=== PATIENT | female | born 1975 | race Caucasian/White ===

== ENCOUNTER 2016-03-25 16:31 | Emergency (ER) | payer BC ==
[~2016-03-25 16:31] MED LIST: ALPR0.25 PO; ALPR1TAB2 PO; CYCL10TA45 PO; DEPO PROVERA; ESTROGEN; LAMO100T65 PO; LAMO100T69 PO; LAMO2TB. PO; NAPR-243 PO; PARO10TA21 PO; PAROXETINE PO; TRAM50TA2 PO; TRM50T PO
== END 2016-03-25 16:35 | disposition left against medical advice (07) ==
LOC: EDUNIT# 16:31 → ER 16:33
DX: R51 Headache (principal); Z53.21 Procedure and treatment not carried out due to patient leaving prior to being seen by health care provider

== ENCOUNTER → 2016-11-26 | Emergency (ER) | payer BC ==
[~2016-11-26] VITALS: Ht 162.6 cm; Wt 81.6 kg
[~2016-11-26] MED LIST changes: +CYCL10TA9 PO; +KETOROLAC 30 MG/ML VIAL IVP ONE; +NS IV 1000 ML 1,000 ML IV ONE; +ONDANSETRON 4 MG/2 ML (SDV) Z0FRAN IVP ONE; +fentaNYL INJECTION 100 MCG/2 ML AMP IVP ONE
[2016-11-26 05:13] LABS: BASOPHILS # (AUTO) 0.1 10^3/uL (0.0-0.1); BASOPHILS % (AUTO) 1 % (0-10); EOSINOPHILS # (AUTO) 0.1 10^3/uL (0.0-0.3); EOSINOPHILS % (AUTO) 2 % (0-10); LYMPHOCYTES # (AUTO) 2.4 X 10^3 (1.0-4.0); LYMPHOCYTES % (AUTO) 32 % (12-44); MEAN CORPUSCULAR HEMOGLOBIN 32 PG (25-34); MEAN CORPUSCULAR HGB CONC 35 G/DL (32-36); MEAN CORPUSCULAR VOLUME 91 FL (80-99); MEAN PLATELET VOLUME 10.7 FL (7.4-10.4); MONOCYTES # (AUTO) 0.8 X 10^3 (0.0-1.0); MONOCYTES % (AUTO) 11 % (0-12); NEUTROPHILS # (AUTO) 4.1 X 10^3 (1.8-7.8); NEUTROPHILS % (AUTO) 55 % (42-75); PLATELET COUNT 326 10^3/uL (130-400); RED CELL DISTRIBUTION WIDTH 13.1 % (10.0-14.5); WHITE BLOOD COUNT 7.5 10^3/uL (4.3-11.0)
[2016-11-26 05:13] LABS: BILIRUBIN,URINE NEGATIVE (NEGATIVE); KETONES,URINE NEGATIVE (NEGATIVE); LEUKOCYTE ESTERASE ,URINE 2+ (NEGATIVE); NITRITE,URINE NEGATIVE (NEGATIVE); PH,URINE 5 (5-9); PROTEIN,URINE 2+ (NEGATIVE); UROBILINOGEN,URINE NORMAL (NORMAL)
--- NOTE | 2016-11-26 05:27 | ED Abdominal Pain ---
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 Sepsis Screen: No Definite Risk Source of Information: Patient Exam Limitations: No Limitations (KIRK DELANEY MD) History of Present Illness Time Seen By Provider: 04:51 Initial Comments This 41-year-old woman presents to the emergency room in distress with complaints of right flank and lower back pain that abruptly woke her from sleep as 02:00. She has associated nausea without vomiting. She has a history of renal stones and states this pain is comparable to prior experiences with renal stones. She had a large 1 cm left obstructing ureteral stone in 2014 for which she received treatment at the [facility] in [place]. She was also noted to have a 0.5 cm stone still within the right kidney on a CT performed at the same time. She states this stone was not addressed. Her primary care provider is Dr. Franks. Her urologist is Dr. Garzon. (KIRK DELANEY MD) Allergies and Home Medications Allergies Coded Allergies: azithromycin (Unverified Allergy, Unknown, 09/29/14) Uncoded Allergies: Z-PACK (Allergy, Severe, RASH, 01/26/15) ESTROGEN (Allergy, Mild, VOMITING, 01/26/15) Home Medications Alprazolam 1 Mg Tablet, 1 MG PO BID, (Reported) Alprazolam 0.25 Mg Tablet, 0.25 MG PO, (Reported) Cyclobenzaprine HCl 10 Mg Tablet, 10 MG PO Q8H PRN for SPASMS, #15 Ref 0 Prescribed by: DANIELLE HIGGINS on 11/26/16 0635 Cyclobenzaprine Hcl 10 Mg Tablet, 10 MG PO BID, #20 Prescribed by: MANNY SEVILLA on 06/30/14 1108 Lamotrigine 100 Mg Tablet, 100 MG PO DAILY, (Reported) Lamotrigine 2 Mg Tb.chw.dsp, 2 MG PO, (Reported) Naproxen 500 Mg Tablet, 1 EACH PO BID PRN for PAIN, #20 FOR PAIN Prescribed by: MANNY SEVILLA on 06/30/14 1110 Tramadol Hcl 50 Mg Tablet, 50 MG PO Q4H PRN for PAIN, (Reported) Tramadol Hcl 50 Mg Tablet, 50 MG PO QID, #60 Prescribed by: MANNY SEVILLA on 06/30/14 1108 [Depo Provera] , (Reported) [Paroxetine] , 40 MG PO DAILY, (Reported) Review of Systems Constitutional: diaphoresis EENTM: No Symptoms Reported Respiratory: No Symptoms Reported Cardiovascular: No Symptoms Reported Gastrointestinal: See HPI Genitourinary: See HPI Musculoskeletal: no symptoms reported Skin: no symptoms reported Psychiatric/Neurological: No Symptoms Reported Endocrine: No Symptoms Reported Hematologic/Lymphatic: No Symptoms Reported (KIRK DELANEY MD) Past Kjbllrk-Plsajo-Dswlno Hx Patient Social History Alcohol Use: Denies Use Recreational Drug Use: No Recent Foreign Travel: No Contact w/Someone Who Travel: No Recent Infectious Disease Expo: No Physical Abuse: No Sexual Abuse: No (KIRK DELANEY MD) Immunizations Up To Date Tetanus Booster (TDap): Unknown (KIRK DELANEY MD) Surgeries History of Surgeries: Yes (d&c, kidney stone basket retrieval and a lithotripsy ) (KIRK DELANEY MD) Respiratory History of Respiratory Disorde: No (KIRK DELANEY MD) Cardiovascular History of Cardiac Disorders: No (KIRK DELANEY MD) Neurological History of Neurological Disord: No (KIRK DELANEY MD) Reproductive System : No Last Menstrual Period: Nov 26, 2016 Hx Reproductive Disorders: No (KIRK DELANEY MD) Genitourinary History of Genitourinary Disor: Yes Genitourinary Disorders: Kidney Stones (KIRK DELANEY MD) Gastrointestinal History of Gastrointestinal Di: No (KIRK DELANEY MD) Musculoskeletal History of Musculoskeletal Dis: Yes (ankle malformation at ) (KIRK DELANEY MD) Endocrine History of Endocrine Disorders: No (KIRK DELANEY MD) HEENT History of HEENT Disorders: No (KIRK DELANEY MD) Cancer History of Cancer: No (KIRK DELANEY MD) Psychosocial History of Psychiatric Problem: Yes Behavioral Health Disorders: ADD/ADHD, Anxiety, Bipolar, Depression Suicide Risk Score: 0 (KIRK DELANEY MD) Integumentary History of Skin or Integumenta: No (KIRK DELANEY MD) Blood Transfusions History of Blood Disorders: No (KIRK DELANEY MD) Family Medical History Significant Family History: Heart Disease, Diabetes, Hypertension (KIRK DELANEY MD) Physical Exam Vital Signs VS - Last 72 Hours, by Label 11/26/16 04:55 Temp 97.4 Pulse 87 Resp 24 B/P (MAP) 186/122 Pulse Ox 88 (MANJULA,DANIELLE J) Vital Signs Capillary Refill : Less Than 3 Seconds (KIRK DELANEY MD) General Appearance: WD/WN, moderate distress HEENT: PERRL/EOMI, normal ENT inspection Neck: normal inspection Respiratory: lungs clear, normal breath sounds, no respiratory distress, no accessory muscle use Cardiovascular: regular rate, rhythm, no edema, no murmur Gastrointestinal: normal bowel sounds, non tender, soft Extremities: normal inspection, no pedal edema Back: normal inspection, no vertebral tenderness, CVA tenderness (R) 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, no motor/sensory deficits, alert, oriented x 3, other (anxious) Skin: normal color, warm/dry (KIRK DELANEY MD) Progress/Results/Core Measures Results/Orders Lab Results Laboratory Tests Test 11/26/16 04:52 11/26/16 05:00 Range/Units Urine Color BROWN H Urine Clarity VERY CLOUDY H Urine pH 5 5-9 Urine Specific [place] 1.025 H 1.016-1.022 Urine Protein 2+ H NEGATIVE Urine Glucose (UA) NEGATIVE NEGATIVE Urine Ketones NEGATIVE NEGATIVE Urine Nitrite NEGATIVE NEGATIVE Urine Bilirubin NEGATIVE NEGATIVE Urine Urobilinogen NORMAL NORMAL MG/DL Urine Leukocyte Esterase 2+ H NEGATIVE Urine RBC (Auto) 5+ H NEGATIVE Urine RBC >100 H /HPF Urine WBC RARE /HPF Urine Squamous Epithelial Cells 2-5 /HPF Urine Crystals NONE /LPF Urine Bacteria FEW H /HPF Urine Casts NONE /LPF Urine Mucus NEGATIVE /LPF Urine Culture Indicated YES White Blood Count 7.5 4.3-11.0 10^3/uL Red Blood Count 4.80 4.35-5.85 10^6/uL Hemoglobin 15.1 11.5-16.0 G/DL Hematocrit 44 35-52 % Mean Corpuscular Volume 91 80-99 FL Mean Corpuscular Hemoglobin 32 25-34 PG Mean Corpuscular Hemoglobin Concent 35 32-36 G/DL Red Cell Distribution Width 13.1 10.0-14.5 % Platelet Count 326 130-400 10^3/uL Mean Platelet Volume 10.7 H 7.4-10.4 FL Neutrophils (%) (Auto) 55 42-75 % Lymphocytes (%) (Auto) 32 12-44 % Monocytes (%) (Auto) 11 0-12 % Eosinophils (%) (Auto) 2 0-10 % Basophils (%) (Auto) 1 0-10 % Neutrophils # (Auto) 4.1 1.8-7.8 X 10^3 Lymphocytes # (Auto) 2.4 1.0-4.0 X 10^3 Monocytes # (Auto) 0.8 0.0-1.0 X 10^3 Eosinophils # (Auto) 0.1 0.0-0.3 10^3/uL Basophils # (Auto) 0.1 0.0-0.1 10^3/uL Sodium Level 139 135-145 MMOL/L Potassium Level 4.0 3.6-5.0 MMOL/L Chloride Level 106 98-107 MMOL/L Carbon Dioxide Level 20 L 21-32 MMOL/L Anion Gap 13 5-14 MMOL/L Blood Urea Nitrogen 17 7-18 MG/DL Creatinine 0.84 0.60-1.30 MG/DL Estimat Glomerular Filtration Rate > 60 BUN/Creatinine Ratio 20 Glucose Level 109 H 70-105 MG/DL Calcium Level 9.6 8.5-10.1 MG/DL Total Bilirubin 0.4 0.1-1.0 MG/DL Aspartate Amino Transf (AST/SGOT) 16 5-34 U/L Alanine Aminotransferase (ALT/SGPT) 17 0-55 U/L Alkaline Phosphatase 89 40-136 U/L Total Protein 7.0 6.4-8.2 GM/DL Albumin 4.5 3.2-4.5 GM/DL Serum Test, Qualitative NEGATIVE NEGATIVE (DANIELLE HIGGINS) My Orders Orders - DANIELLE HIGGINS Fentanyl Injection (Sublimaze Injection (11/26/16 06:15) (DANIELLE HIGGINS) Medications Given in ED Current Medications Medications Dose Ordered Sig/Ronnie Route Start Time Stop Time Status Last Admin Dose Admin Fentanyl Citrate 50 mcg ONCE ONCE IVP 11/26/16 06:15 11/26/16 06:16 DC 11/26/16 06:08 50 MCG Ketorolac Tromethamine 30 mg ONCE ONCE IVP 11/26/16 05:00 11/26/16 05:01 DC 11/26/16 05:04 30 MG Ondansetron HCl 4 mg ONCE ONCE IVP 11/26/16 05:00 11/26/16 05:01 DC 11/26/16 05:04 4 MG Ondansetron HCl 4 mg ONCE ONCE IVP 11/26/16 05:30 11/26/16 05:31 DC 11/26/16 05:36 4 MG Sodium Chloride 1,000 ml @ 0 mls/hr Q0M ONCE IV 11/26/16 05:21 11/26/16 05:23 DC 11/26/16 05:36 999 MLS/HR (DANIELLE HIGGINS) Vital Signs/I&O Vital Sign - Last 12Hours 11/26/16 04:55 Temp 97.4 Pulse 87 Resp 24 B/P (MAP) 186/122 Pulse Ox 88 (DANIELLE HIGGINS J) Blood Pressure Mean: 143 Progress Note : Time: 05:34 Progress Note Patient was interviewed, seen, and examined along with ADELA Dominique. I agree with MS4 history, exam, and assessment with the following additions. Patient is in somewhat distress from this pain. She feels it is similar to prior kidney stones. She is very anxious. She is alert and oriented. Lungs are clear to auscultation bilaterally. Abdomen is soft with tenderness in the right flank. Bowel sounds are normal. Extremities are unremarkable. Labs and UA pending. Pain was treated with Toradol and nausea treated with Zofran. A second dose of Zofran was administered due to rebound nausea. (KIRK DELANEY MD) Progress Note : Time: 06:21 Progress Note Took over care of the patient, met with and examined the patient. Her story and clinical findings are consistent with possible stone. Her urine with blood in it could be because of her. She is completing versus passage of a kidney stone. No history of trauma. Other differential might include just lumbar back pain secondary to she was sleeping on a couch which is not her normal sleeping position. (DANIELLE HIGGINS) Diagnostic Imaging Diagonstic Imaging: CT Plain Films/CT/US/NM/MRI: abdomen, pelvis (without contrast) Comments Tiny non-shadowing calculus within the left kidney otherwise the kidneys ureter and urinary bladder unremarkable. Incidentally there is normal looking lower thorax. Liver, gallbladder, spleen, pancreas and adrenal glands are unremarkable. IUD and a abdominal follicle left ovary measuring 22 mm. Appendix normal limits. Stomach small bowel colon are unremarkable. No acute osseous fracture or abnormality. (DANIELLE HIGGINS) Transfer of Care Transfer of Care Time: 06:00 Care transferred to: Manjula (DANIELLE HIGGINS) Departure Impression Impression: Primary Impression: Back pain Qualified Codes: M54.5 - Low back pain Disposition: HOME, SELF-CARE Condition: Improved Departure-Patient Inst. Decision time for Depature: 06:32 (DANIELLE HIGGINS) Referrals: [facility] (PCP/Family) Primary Care Physician Patient Instructions: Back Exercises Add. Discharge Instructions: Go home and get some rest. Apply some heat alternating with ice to your back. You can also use creams such as icy hot or Capsaicin oil. Use the Flexeril every 8 hours as needed but realizes that Flexeril can cause you to be drowsy. Take ibuprofen 800 mg every 8 hours for Naprosyn/Aleve 2 capsules twice a day. If you have breakthrough pain you can take 1000 mg of Tylenol every 8 hours. If this is not improving or is interfering with your ability to function should follow-up with her primary care physician. Typically these pains resolve entirely within 4-6 weeks. You may experience much quicker relief however. All discharge instructions reviewed with patient and/or family. Voiced understanding. Scripts Cyclobenzaprine HCl (Cyclobenzaprine HCl) 10 Mg Tablet 10 MG PO Q8H Y for SPASMS, #15 TAB 0 Refills Prov: DANIELLE HIGGINS 11/26/16 Work/School Note: Work Release Form Date Seen in the Emergency Department: Nov 26, 2016 Return to Work: Nov 27, 2016 Restrictions: No Restrictions Copy Copies To 1: SALONI LEIVA JOSHUA T MD Nov 26, 2016 05:27 DANIELLE HIGGINS Nov 26, 2016 06:23
[2016-11-26 05:28] LABS: WBC,URINE RARE /HPF
[2016-11-26 05:40] LABS: ALANINE AMINOTRANSFERASE 17 U/L (0-55); ALBUMIN 4.5 GM/DL (3.2-4.5); ANION GAP 13 MMOL/L (5-14); ASPARTATE AMINO TRANSFERASE 16 U/L (5-34); BILIRUBIN,TOTAL 0.4 MG/DL (0.1-1.0); BLOOD UREA NITROGEN 17 MG/DL (7-18); BUN/CREATININE RATIO 20; CALCIUM 9.6 MG/DL (8.5-10.1); CARBON DIOXIDE 20 MMOL/L (21-32); CHLORIDE 106 MMOL/L (98-107); CREATININE SERUM 0.84 MG/DL (0.60-1.30); GFR ESTIMATED > 60; GLUCOSE 109 MG/DL (70-105); SODIUM 139 MMOL/L (135-145)
[2016-11-26 06:42] VITALS: BP 130/89
--- NOTE | 2016-11-26 06:44 | Diagnostic Imaging Report ---
PROCEDURE: CT urinary tract, rule out kidney stone. TECHNIQUE: Multiple contiguous axial images were obtained through the abdomen and pelvis without the use of intravenous contrast. INDICATION: Right lower back pain. History of kidney stones. COMPARISON: 09/29/2014 FINDINGS: Included views of the lung bases are clear. CT abdomen: Normal appendix is identified. Small bowel loops are nondistended. Single nonobstructive punctate renal calculus is noted within the superior pole on the left. No renal calculus seen on the right side. No uterine calculi are seen on either side. Additionally, there is no hydronephrosis or other evidence of obstruction. Note is made of asymmetric prominent appearance to the right gonadal vein. No focal renal lesions are identified on this noncontrast study. The liver, spleen, pancreas, and adrenal glands have an unremarkable noncontrast CT appearance as well. There is no loculated fluid collection, free fluid, nor free air within the abdomen. No abnormal mesenteric or retroperitoneal adenopathy is seen. Bony structures show no acute abnormalities. CT pelvis: Urinary bladder is unopacified. No calculi are seen within the urinary bladder. Indwelling intrauterine contraceptive device is identified and appears to be in appropriate position. There is a left ovarian cyst that measures 2.5 x 1.7 cm. There may be trace free fluid within the pelvis. There is no loculated fluid collection or free air. No abnormal lymph nodes are seen. Bony structures show no acute abnormalities. IMPRESSION: 1. Single nonobstructive left renal calculus. No ureteral calculi or evidence of obstruction is seen on either side. 2. Small amount of free fluid in the pelvis; possibly physiologic. 3. Left ovarian cyst. 4. Asymmetric prominence of the right gonadal vein. This is nonspecific, but in the correct clinical setting, can be seen as a sequela of pelvic congestion syndrome. Dictated by: Dictated on workstation # [id number]
== END ==
LOC: EDUNIT# 04:46 → ER 04:48
DX: M54.5 Low back pain (principal); F31.9 Bipolar disorder, unspecified; F41.9 Anxiety disorder, unspecified; F90.9 Attention-deficit hyperactivity disorder, unspecified type; Z87.442 Personal history of urinary calculi; Z82.49 Family history of ischemic heart disease and other diseases of the circulatory system
CPT/HCPCS: 36415; 74176; 80053; 81000; 84703; 85025; 87088

== ENCOUNTER → 2017-04-11 | Outpatient (CLI) | payer BC ==
[~2017-04-11] MED LIST changes: -KETOROLAC 30 MG/ML VIAL IVP ONE; -NS IV 1000 ML 1,000 ML IV ONE; -ONDANSETRON 4 MG/2 ML (SDV) Z0FRAN IVP ONE; -fentaNYL INJECTION 100 MCG/2 ML AMP IVP ONE
--- NOTE | 2017-04-11 17:48 | Diagnostic Imaging Report ---
INDICATION: Low back pain with sciatica. Lumbar spine. FINDINGS: AP and lateral views of the lumbar spine show normal vertebral body height and alignment. Disc spaces are well maintained. IMPRESSION: Unremarkable lumbar spine. Dictated by: Dictated on workstation # [id number]
--- NOTE | 2017-04-11 17:50 | Diagnostic Imaging Report ---
INDICATION: Low back pain with sciatica. FINDINGS: AP and lateral views of the sacrum and coccyx show no fracture or dislocation. There is an IUD present. IMPRESSION: Negative sacrum and coccyx Dictated by: Dictated on workstation # [id number]
== END ==
LOC: RAD 16:24
PROVIDERS: ATTEND Nurse Practitioner Family
DX: M54.40 Lumbago with sciatica, unspecified side (principal); Z97.5 Presence of (intrauterine) contraceptive device
CPT/HCPCS: 72100; 72220

== ENCOUNTER 2017-10-19 16:39 | Emergency (ER) | payer BC ==
[~2017-10-19] VITALS: Ht 162.6 cm; Wt 73.0 kg
--- NOTE | 2017-10-19 17:18 | ED Integumentary General ---
General Chief Complaint: Skin/Wound Problems Stated Complaint: SPIDER BITE Nursing Triage Note: PT CO OF AREA ON R ELBOW APPROX 1.5CM R ELBOW STATES HAS PAIN RED ROUND AND CRUSTY Source: patient Exam Limitations: no limitations History of Present Illness Date Seen by Provider: Oct 19, 2017 Time Seen by Provider: 17:00 Initial Comments Patient is a 42-year-old female who presents to the emergency room with complaints of an infection or a spider bite to her right elbow. She states that the area started as a pimple 4 days ago that she squeezed and now the area is approximately 1-1/2 cm in diameter and has a crust over it and redness around the outside. She also reports fever. Timing/Duration: week Location: extremities Possible Cause: no cause identified, insect bite Associated Symptoms: change in skin texture, fever Allergies and Home Medications Allergies Coded Allergies: azithromycin (Unverified Allergy, Unknown, 09/29/14) Uncoded Allergies: Z-PACK (Allergy, Severe, RASH, 01/26/15) ESTROGEN (Allergy, Mild, VOMITING, 01/26/15) Home Medications Alprazolam 1 Mg Tablet, 1 MG PO BID, (Reported) Lamotrigine 100 Mg Tablet, 100 MG PO DAILY, (Reported) Sulfamethoxazole/Trimethoprim 1 Each Tablet, 1 EACH PO BID Prescribed by: MARSHA CHAKRABORTY on 10/19/171758 [Paroxetine] , 40 MG PO DAILY, (Reported) Patient Home Medication List Home Medication List Reviewed: Yes Constitutional: see HPI, chills, fever Skin: see HPI, change in color, lesions (right elbow) All Other Systems Reviewed Negative Unless Noted: Yes Past Ofnexpe-Rihmoq-Fuvweh Hx Past Med/Social Hx: Reviewed Nursing Past Med/Soc Hx Patient Social History Alcohol Use: Occasionally Uses Recreational Drug Use: No Smoking Status: Never a Smoker Recent Foreign Travel: No Contact w/Someone Who Travel: No Recent Infectious Disease Expo: No Recent Hopitalizations: No Physical Abuse: No Sexual Abuse: No Immunizations Up To Date Tetanus Booster (TDap): Unknown Past Medical History Surgeries: Yes (d&c, kidney stone basket retrieval and a lithotripsy) Respiratory: No Cardiac: No Neurological: No Reproductive Disorders: No Genitourinary: Yes Kidney Stones Gastrointestinal: No Musculoskeletal: Yes (ankle malformation at ) Endocrine: No HEENT: No Cancer: No Psychosocial: Yes ADD/ADHD, Anxiety, Bipolar, Depression Nursing Suicide Risk Score: 0 Integumentary: No Blood Disorders: No Family Medical History Reviewed Nursing Family Hx Heart Disease, Diabetes, Hypertension Physical Exam Vital Signs Vital Signs - First Documented 10/19/17 16:55 Temp 97.1 Pulse 79 Resp 18 B/P (MAP) 147/100 (116) Pulse Ox 98 Capillary Refill : Less Than 3 Seconds General Appearance: WD/WN, no apparent distress Cardiovascular: regular rate, rhythm, no edema, no gallop, no JVD, no murmur Respiratory: chest non-tender, lungs clear, normal breath sounds, no respiratory distress, no accessory muscle use Skin Problem Location: upper extremities (right elbow) Skin Problem Character: abscess (abscess has drained on its own. ), erythema, tenderness, thickening, warm Progress/Results/Core Measures Results/Orders Lab Results Laboratory Tests Test 10/19/17 17:00 Range/Units White Blood Count 8.3 4.3-11.0 10^3/uL Red Blood Count 4.96 4.35-5.85 10^6/uL Hemoglobin 15.9 11.5-16.0 G/DL Hematocrit 45 35-52 % Mean Corpuscular Volume 91 80-99 FL Mean Corpuscular Hemoglobin 32 25-34 PG Mean Corpuscular Hemoglobin Concent 35 32-36 G/DL Red Cell Distribution Width 13.0 10.0-14.5 % Platelet Count 294 130-400 10^3/uL Mean Platelet Volume 10.5 H 7.4-10.4 FL Neutrophils (%) (Auto) 73 42-75 % Lymphocytes (%) (Auto) 17 12-44 % Monocytes (%) (Auto) 9 0-12 % Eosinophils (%) (Auto) 1 0-10 % Basophils (%) (Auto) 0 0-10 % Neutrophils # (Auto) 6.0 1.8-7.8 X 10^3 Lymphocytes # (Auto) 1.4 1.0-4.0 X 10^3 Monocytes # (Auto) 0.7 0.0-1.0 X 10^3 Eosinophils # (Auto) 0.1 0.0-0.3 10^3/uL Basophils # (Auto) 0.0 0.0-0.1 10^3/uL Sodium Level 139 135-145 MMOL/L Potassium Level 3.9 3.6-5.0 MMOL/L Chloride Level 104 98-107 MMOL/L Carbon Dioxide Level 25 21-32 MMOL/L Anion Gap 10 5-14 MMOL/L Blood Urea Nitrogen 7 7-18 MG/DL Creatinine 0.83 0.60-1.30 MG/DL Estimat Glomerular Filtration Rate > 60 BUN/Creatinine Ratio 8 Glucose Level 114 H 70-105 MG/DL Calcium Level 9.7 8.5-10.1 MG/DL Total Bilirubin 0.8 0.1-1.0 MG/DL Aspartate Amino Transf (AST/SGOT) 18 5-34 U/L Alanine Aminotransferase (ALT/SGPT) 20 0-55 U/L Alkaline Phosphatase 81 40-136 U/L Total Protein 7.3 6.4-8.2 GM/DL Albumin 5.0 H 3.2-4.5 GM/DL Micro Results Microbiology 10/19/17 Gram Stain - Final, Complete 10/19/17 Wound Culture - Final, Complete Staphylococcus aureus My Orders Orders - MARSHA CHAKRABORTY Comprehensive Metabolic Panel (10/19/17 17:21) Saline Lock/Iv-Start (10/19/17 17:21) Cbc With Automated Diff (10/19/17 17:21) Wound Culture (10/19/17 17:21) Vital Signs/I&O 10/19/17 10/19/17 16:55 18:00 Temp 97.1 97.1 Pulse 79 79 Resp 18 18 B/P (MAP) 147/100 (116) 132/75 (116) Pulse Ox 98 98 Blood Pressure Mean: 116 Progress Progress Note : Progress Note The wound has already been draining. A culture has been obtained. Patient will be started on antibiotics. She agrees with close follow up and return precautions. Departure Impression Primary Impression: Abscess Disposition: 01 HOME, SELF-CARE Condition: Stable/Unchanged Departure-Patient Inst. Decision time for Depature: 17:57 Referrals: TWILA MCNEIL MD (PCP) Primary Care Physician Patient Instructions: MRSA (DC), Skin Abscess, Cellulitis (Skin Infection), Adult (DC) Add. Discharge Instructions: Take medication as directed. You may use Tylenol and ibuprofen for pain and fever. Follow up with [facility] within 1 week for recheck. Call first thing tomorrow morning for appointment time. Return back to the emergency room for any worsening pain, infection, or any other concerns as needed. All discharge instructions reviewed with patient and/or family. Voiced understanding. Scripts Sulfamethoxazole/Trimethoprim (Bactrim Ds Tablet) 1 Each Tablet 1 EACH PO BID for 7 Days, #14 TAB Prov: MARSHA CHAKRABORTY 10/19/17 Work/School Note: Work Release Form Date Seen in the Emergency Department: Oct 19, 2017 Return to Work: Oct 21, 2017 Restrictions: No Restrictions MARSHA CHAKRABORTY Oct 19, 2017 17:18
[2017-10-19 17:28] LABS: BASOPHILS % (AUTO) 0 % (0-10); EOSINOPHILS # (AUTO) 0.1 10^3/uL (0.0-0.3); EOSINOPHILS % (AUTO) 1 % (0-10); HEMATOCRIT 45 % (35-52); HEMOGLOBIN 15.9 G/DL (11.5-16.0); LYMPHOCYTES # (AUTO) 1.4 X 10^3 (1.0-4.0); LYMPHOCYTES % (AUTO) 17 % (12-44); MEAN CORPUSCULAR HEMOGLOBIN 32 PG (25-34); MEAN CORPUSCULAR HGB CONC 35 G/DL (32-36); MEAN CORPUSCULAR VOLUME 91 FL (80-99); MEAN PLATELET VOLUME 10.5 FL (7.4-10.4); MONOCYTES # (AUTO) 0.7 X 10^3 (0.0-1.0); MONOCYTES % (AUTO) 9 % (0-12); NEUTROPHILS % (AUTO) 73 % (42-75); PLATELET COUNT 294 10^3/uL (130-400); RED BLOOD COUNT 4.96 10^6/uL (4.35-5.85); WHITE BLOOD COUNT 8.3 10^3/uL (4.3-11.0)
[2017-10-19 17:42] LABS: ALANINE AMINOTRANSFERASE 20 U/L (0-55); ALKALINE PHOSPHATASE 81 U/L (40-136); BILIRUBIN,TOTAL 0.8 MG/DL (0.1-1.0); BUN/CREATININE RATIO 8; CALCIUM 9.7 MG/DL (8.5-10.1); CARBON DIOXIDE 25 MMOL/L (21-32); CHLORIDE 104 MMOL/L (98-107); CREATININE SERUM 0.83 MG/DL (0.60-1.30); GFR ESTIMATED > 60; GLUCOSE 114 MG/DL (70-105); POTASSIUM 3.9 MMOL/L (3.6-5.0); SODIUM 139 MMOL/L (135-145); TOTAL PROTEIN 7.3 GM/DL (6.4-8.2)
[2017-10-19] MEDS ORDERED: SULF1TAB35 PO (17:59)
[2017-10-19 18:00] VITALS: BP 132/75
== END 2017-10-19 18:00 | disposition home or self-care (01) ==
LOC: EDUNIT# 16:39 → ER 16:41
DX: L02.413 Cutaneous abscess of right upper limb (principal); S40.861A Insect bite (nonvenomous) of right upper arm, initial encounter; F90.9 Attention-deficit hyperactivity disorder, unspecified type; F41.9 Anxiety disorder, unspecified; F31.9 Bipolar disorder, unspecified; Z82.49 Family history of ischemic heart disease and other diseases of the circulatory system; Z88.0 Allergy status to penicillin; Z88.8 Allergy status to other drugs, medicaments and biological substances; Z87.442 Personal history of urinary calculi; W57.XXXA Bitten or stung by nonvenomous insect and other nonvenomous arthropods, initial encounter
CPT/HCPCS: 36415; 80053; 85025; 87070; 87077; 87186; 87205; 99283

== ENCOUNTER 2018-05-19 09:40 | Emergency (ER) | payer BC ==
[~2018-05-19] VITALS: Ht 162.6 cm; Wt 72.6 kg
[~2018-05-19 09:40] MED LIST changes: +AMOX500C2 PO; +SULF1TAB35 PO
--- NOTE | 2018-05-19 11:17 | NUR ---
AMB TO ROOM NO CHANGE FROM TRAIGE.
[2018-05-19] MEDS ORDERED: KETOROLAC 60 MG/2 ML VIAL IM ONE (11:30)
[2018-05-19] MEDS ORDERED: ORPHENADRINE 60 MG/2 ML (NORFLEX) AMP IM ONE (11:30)
--- NOTE | 2018-05-19 11:35 | ED General ---
General Chief Complaint: General Problems/Pain Stated Complaint: MUSCLE SPASMS CRAMPING Nursing Triage Note: FOR PAST 3 MONTHS BEEN HAVING SPASMS TO RIGHT- HIP AREA. SEES A CHIROPRACTOR BUT DOES NOT HELP WITH SPASMS. DOES NOT TAKE ANY MEDS FOR SPASMS OTHER THAN IBUPROFEN. STATES TODAY PAIN IS TOO INTENSE. NOW RADIATES TO R-LEG. TOOK OTC IBUPROFEN AT 0500 THIS AM Nursing Sepsis Screen: No Definite Risk Source of Information: Patient Exam Limitations: No Limitations History of Present Illness Date Seen by Provider: May 19, 2018 Time Seen by Provider: 11:30 Initial Comments 43 year old female who presents to the emergency room with complaints of spasms of her right hip that radiates down her right leg/upper thigh area. She reports that she has been seen by a chiropractor in her primary caregiver over the course of a month but has had increasing pain the last 3 days. She reports that she's been taking ibuprofen for pain and has seen a chiropractor but has not had any relief of her symptoms. She also reports a burning sensation to her right thigh area. She denies loss of bowel or bladder. She reports the pain was so bad today that she could not got to work. Timing/Duration: Other (1 month) Associated Systoms: Denies Symptoms Allergies and Home Medications Allergies Coded Allergies: azithromycin (Unverified Allergy, Unknown, 09/29/14) Uncoded Allergies: Z-PACK (Allergy, Severe, RASH, 01/26/15) ESTROGEN (Allergy, Mild, VOMITING, 01/26/15) Home Medications Alprazolam 1 Mg Tablet, 1 MG PO BID, (Reported) Cyclobenzaprine HCl 10 Mg Tablet, 10 MG PO Q8H Prescribed by: MARSHA CHAKRABORTY on 05/19/18 1249 Lamotrigine 100 Mg Tablet, 100 MG PO DAILY, (Reported) Prednisone 20 Mg Tab, 40 MG PO DAILY Prescribed by: MARSHA CHAKRABORTY on 05/19/18 1249 [Paroxetine] , 40 MG PO DAILY, (Reported) Patient Home Medication List Home Medication List Reviewed: Yes Review of Systems Review of Systems Constitutional: no symptoms reported, see HPI Musculoskeletal: see HPI, muscle pain (Right hip muscle pain that radiates down to her right thumb) All Other Systems Reviewed Negative Unless Noted: Yes Past Dfvlbsb-Erktpr-Iyguhk Hx Past Med/Social Hx: Reviewed Nursing Past Med/Soc Hx Patient Social History Alcohol Use: Denies Use Recreational Drug Use: No Smoking Status: Never a Smoker Recent Foreign Travel: No Contact w/Someone Who Travel: No Recent Infectious Disease Expo: No Recent Hopitalizations: No Immunizations Up To Date Tetanus Booster (TDap): Unknown Past Medical History Surgeries: Yes (d&c, kidney stone basket retrieval and a lithotripsy) Respiratory: No Cardiac: No Neurological: No Reproductive Disorders: No Genitourinary: Yes Kidney Stones Gastrointestinal: No Musculoskeletal: Yes (ankle malformation at ) Endocrine: No HEENT: No Cancer: No Psychosocial: Yes ADD/ADHD, Anxiety, Bipolar, Depression Integumentary: No Blood Disorders: No Family Medical History Reviewed Nursing Family Hx Heart Disease, Diabetes, Hypertension Physical Exam Vital Signs Vital Signs - First Documented 05/19/18 11:01 Temp 98.7 Pulse 79 Resp 18 B/P (MAP) 119/76 (90) Pulse Ox 98 O2 Delivery Room Air Capillary Refill : Less Than 3 Seconds Height, Weight, BMI Height: 5'4.00" Weight: 160lbs. oz. 72.706484ko; 32.61 BMI Method:Stated General Appearance: No Apparent Distress, WD/WN Respiratory: Chest Non Tender, Lungs Clear, Normal Breath Sounds, No Accessory Muscle Use, No Respiratory Distress Cardiovascular: Regular Rate, Rhythm, No Edema, No Gallop, No JVD, No Murmur, Normal Peripheral Pulses Extremity: Normal Capillary Refill, Normal Inspection, Normal Range of Motion, Non Tender, No Calf Tenderness, No Pedal Edema Neurologic/Psychiatric: Alert, Oriented x3 Skin: Normal Color, Warm/Dry Progress/Results/Core Measures Suspected Sepsis Recent Fever Within 48 Hours: No Infection Criteria Present: None New/Unexplained Altered Menta: No Sepsis Screen: No Definite Risk SIRS Temperature:98.7 Pulse: 79 Respiratory Rate: 18 Blood Pressure 119 /76 Mean: 90 Results/Orders My Orders Orders - BERNOT,MARSHA Ketorolac Injection (Toradol Injection) (05/19/18 11:30) Orphenadrine Injection (Norflex Injectio (05/19/18 11:30) Hydrocodone/Apap 5/325 Tablet (Lortab 5 (05/19/18 12:30) Medications Given in ED Vital Signs/I&O Capillary Refill : Less Than 3 Seconds Blood Pressure Mean: 90 Progress Note : Time: 12:45 Progress Note I have seen and evaluated the patient. Her pain has improved after Toradol and Norflex and she is having less muscle spasms. We will give her a one-time dose of hydrocodone to see if this helps her pain. She agrees with plan of care, plans for discharge, return precautions were given. Departure Impression Primary Impression: Sciatic nerve pain Disposition: 01 HOME, SELF-CARE Condition: Stable/Unchanged Departure-Patient Inst. Decision time for Depature: 12:46 Referrals: TWILA MCNEIL MD (PCP/Family) Primary Care Physician Patient Instructions: Sciatica (DC), Sciatica Exercises Add. Discharge Instructions: You may use ibuprofen and Tylenol as directed by the bottle for pain relief. Take medications as directed. Follow-up with your primary care provider within 1 week for recheck. Return back to the emergency room for worsening symptoms or as needed. All discharge instructions reviewed with patient and/or family. Voiced understanding. Scripts Prednisone (Prednisone) 20 Mg Tab 40 MG PO DAILY, #10 TAB Prov: MARSHA CHAKRABORTY 05/19/18 Cyclobenzaprine HCl (Cyclobenzaprine HCl) 10 Mg Tablet 10 MG PO Q8H, #14 TAB Prov: MARSHA CHAKRABORTY 05/19/18 MARSHA CHAKRABORTY May 19, 2018 11:35
[2018-05-19] MEDS ORDERED: HYDROcodone/APAP 5 MG/325 MG (LORTAB) TAB PO ONE (12:30)
[2018-05-19] MEDS ORDERED: PRD20T PO (12:49)
[2018-05-19] MEDS ORDERED: CYCL10TA9 PO (12:49)
[2018-05-19 13:16] VITALS: BP 120/83
== END 2018-05-19 13:10 | disposition home or self-care (01) ==
LOC: EDUNIT# 09:40 → ER 09:45
DX: M54.31 Sciatica, right side (principal); Q66.9 Congenital deformity of feet, unspecified; F98.8 Other specified behavioral and emotional disorders with onset usually occurring in childhood and adolescence; F90.9 Attention-deficit hyperactivity disorder, unspecified type; F41.9 Anxiety disorder, unspecified; F31.9 Bipolar disorder, unspecified; Z88.1 Allergy status to other antibiotic agents; Z88.8 Allergy status to other drugs, medicaments and biological substances; Z82.49 Family history of ischemic heart disease and other diseases of the circulatory system; Z87.442 Personal history of urinary calculi; Z98.890 Other specified postprocedural states
CPT/HCPCS: 99284

== ENCOUNTER 2018-06-28 07:10 | Emergency (ER) | payer BC ==
[~2018-06-28] VITALS: Ht 162.6 cm; Wt 63.0 kg
[~2018-06-28 07:10] MED LIST changes: +PRD20T PO
--- NOTE | 2018-06-28 07:37 | ED Back Pain ---
General Stated Complaint: SCIATIC PAIN IN BACK OF RT LEG Source of Information: Patient Exam Limitations: No Limitations History of Present Illness Date Seen by Provider: Jun 28, 2018 Time Seen by Provider: 07:32 Initial Comments This 43-year-old white female presents with progressive low back pain radiating into her posterior right leg since March. The patient has been seen at [facility] diagnosed with sciatica and treated with ibuprofen and steroids without significant improvement. The patient had brief foot drop and a numb right foot which has spontaneously resolved. Patient is complaining of severe pain sharp in nature in the low back radiating down the posterior aspect of the right leg not relieved with her treatments. The patient has not had a CAT scan of her low back. Allergies and Home Medications Allergies Coded Allergies: azithromycin (Unverified Allergy, Unknown, 09/29/14) Uncoded Allergies: Z-PACK (Allergy, Severe, RASH, 01/26/15) ESTROGEN (Allergy, Mild, VOMITING, 01/26/15) Home Medications Alprazolam 1 Mg Tablet, 1 MG PO BID, (Reported) Lamotrigine 100 Mg Tablet, 100 MG PO DAILY, (Reported) [Paroxetine] , 40 MG PO DAILY, (Reported) Patient Home Medication List Home Medication List Reviewed: Yes Review of Systems Constitutional: No chills, No fever EENTM: No hearing loss, No vision loss Respiratory: No cough Cardiovascular: No chest pain Gastrointestinal: No abdominal pain, No nausea, No vomiting Genitourinary: No decreased output, No dysuria, No frequency Musculoskeletal: back pain Skin: No rash Psychiatric/Neurological: No Symptoms Reported Past Lsjneun-Vyqwpf-Caenjs Hx Past Med/Social Hx: Reviewed Nursing Past Med/Soc Hx Patient Social History Recent Foreign Travel: No Contact w/Someone Who Travel: No Recent Hopitalizations: No Immunizations Up To Date Tetanus Booster (TDap): Unknown Past Medical History Surgeries: Yes (d&c, kidney stone basket retrieval and a lithotripsy) Respiratory: No Cardiac: No Neurological: No Reproductive Disorders: No Genitourinary: Yes Kidney Stones Gastrointestinal: No Musculoskeletal: Yes (ankle malformation at ) Endocrine: No HEENT: No Cancer: No Psychosocial: Yes ADD/ADHD, Anxiety, Bipolar, Depression Integumentary: No Blood Disorders: No Family Medical History Heart Disease, Diabetes, Hypertension Physical Exam Vital Signs Vital Signs - First Documented 06/28/18 07:27 Temp 98.0 Pulse 100 Resp 18 B/P (MAP) 133/104 (114) Pulse Ox 96 Capillary Refill : Height, Weight, BMI Height: 5'4.00" Weight: 160lbs. oz. 72.165351vu; 32.61 BMI Method:Stated General Appearance: WD/WN, Moderate Distress Neck: Normal Inspection Cardiovascular: Regular Rate, Rhythm Respiratory: Lungs Clear Gastrointestinal: Normal Bowel Sounds Back: Normal Inspection Extremity: Normal Inspection Neurologic/Psychiatric: Oriented x3, No Motor/Sensory Deficits, Normal Mood/ Affect Skin: Normal Color, Warm/Dry; No Rash Progress/Results/Core Measures Results/Orders My Orders Orders - SAL SNOW MD Ns Iv 1000 Ml (Sodium Chloride 0.9%) (06/28/18 07:45) Fentanyl Injection (Sublimaze Injection (06/28/18 07:45) Ct Lumbar Spine Wo (06/28/18 07:32) Promethazine Injection (Phenergan Injec (06/28/18 08:15) Diphenhydramine Injection (Benadryl Inje (06/28/18 08:15) Promethazine Injection (Phenergan Injec (06/28/18 08:13) Diphenhydramine Injection (Benadryl Inje (06/28/18 08:13) Ketorolac Injection (Toradol Injection) (06/28/18 08:45) Medications Given in ED Current Medications Medications Dose Ordered Sig/Ronnie Route Start Time Stop Time Status Last Admin Dose Admin Diphenhydramine HCl 25 mg ONCE ONCE IVP 06/28/18 08:15 06/28/18 08:16 DC 06/28/18 08:15 25 MG Fentanyl Citrate 50 mcg ONCE ONCE IVP 06/28/18 07:45 06/28/18 07:46 DC 06/28/18 08:05 50 MCG Promethazine HCl 25 mg ONCE ONCE IVP 06/28/18 08:15 06/28/18 08:16 DC 06/28/18 08:15 25 MG Vital Signs/I&O 06/28/18 07:27 Temp 98.0 Pulse 100 Resp 18 B/P (MAP) 133/104 (114) Pulse Ox 96 Progress Progress Note : Time: 08:43 Progress Note Patient was given that now, Benadryl, and Phenergan for her back pain. Patient was moderately improved level tends a level VII). I gave the patient an additional [address] of the lumbar spine demonstrated degenerative disc disease at L5-S1. I discussed the findings with the patient. I will discharge the patient with Percocet, Flexeril, and Toradol. I asked her to follow up with her caregivers at [facility] tomorrow. She was invited to return to the emergency department she had any further problems or questions. ( Departure Impression Primary Impression: Sciatic neuropathy Qualified Codes: G57.01 - Lesion of sciatic nerve, right lower limb Disposition: HOME, SELF-CARE Condition: Improved Departure-Patient Inst. Decision time for Depature: 08:46 Referrals: TWILA MCNEIL MD (PCP/Family) Primary Care Physician Patient Instructions: Radiculopathy (DC) Add. Discharge Instructions: Percocet, Flexeril, and Toradol as prescribed. Follow-up with your caregiver at [facility] tomorrow. Return if any problems or questions. Scripts Oxycodone HCl/Acetaminophen (Percocet 5-325 mg Tablet) 1 Each Tablet 1 TAB PO Q4H for PAIN-MODERATE MDD 6 TABS, #20 TAB Prov: SAL SNOW MD 06/28/18 Ketorolac Tromethamine (Ketorolac Tromethamine) 10 Mg Tablet 10 MG PO Q6H for Back Pain, #20 TAB Prov: SAL SNOW MD 06/28/18 Cyclobenzaprine HCl (Cyclobenzaprine HCl) 10 Mg Tablet 10 MG PO TID for Back Pain, #20 TAB Prov: SAL SNOW MD 06/28/18 SAL SNOW MD Jun 28, 2018 07:37
[2018-06-28] MEDS ORDERED: fentaNYL INJECTION 100 MCG/2 ML AMP IVP ONE (07:45)
[2018-06-28] MEDS ORDERED: NS IV 1000 ML 1,000 ML IV SCH (07:45)
[2018-06-28] MEDS ORDERED: GABA300S2 PO (07:54)
[2018-06-28] MEDS ORDERED: PROMETHAZINE INJ 25 MG/ML (PHENERGAN) AMP ONE (08:13)
[2018-06-28] MEDS ORDERED: diphenhydrAMINE 50 MG/ML INJ (BENADRYL) ONE (08:13)
[2018-06-28] MEDS ORDERED: PROMETHAZINE INJ 25 MG/ML (PHENERGAN) AMP IVP ONE (08:15)
[2018-06-28] MEDS ORDERED: diphenhydrAMINE 50 MG/ML INJ (BENADRYL) IVP ONE (08:15)
--- NOTE | 2018-06-28 08:25 | Diagnostic Imaging Report ---
PROCEDURE: CT lumbar spine without contrast. TECHNIQUE: Multiple contiguous axial images were obtained through the lumbar spine without the use of intravenous contrast. Sagittal and coronal reformations were then performed. Auto Exposure Controls were utilized during the CT exam to meet ALARA standards for radiation dose reduction. INDICATION: Back pain after fall. FINDINGS: The alignment of the lumbar spine is normal. The vertebral body heights are well-maintained. There is no spondylolysis or spondylolisthesis. No fractures are identified. There is some degenerative disc disease at L5-S1. The abdominal aorta is nonaneurysmal. The kidneys are normal in appearance. IMPRESSION: Degenerative disc disease at L5-S1. Otherwise unremarkable CT lumbar spine Dictated by: Dictated on workstation # [id number]
[2018-06-28] MEDS ORDERED: KETOROLAC 30 MG/ML VIAL IVP ONE (08:45)
[2018-06-28] MEDS ORDERED: CYCL10TA9 PO (08:51)
[2018-06-28] MEDS ORDERED: OXYC1TAB87 PO (08:51)
[2018-06-28] MEDS ORDERED: KETO10TA PO (08:51)
[2018-06-28 09:13] VITALS: BP 128/80
== END 2018-06-28 09:13 | disposition home or self-care (01) ==
LOC: EDUNIT# 07:10 → ER 07:14
DX: G57.01 Lesion of sciatic nerve, right lower limb (principal); F98.8 Other specified behavioral and emotional disorders with onset usually occurring in childhood and adolescence; F90.9 Attention-deficit hyperactivity disorder, unspecified type; F41.9 Anxiety disorder, unspecified; F31.9 Bipolar disorder, unspecified; Z88.1 Allergy status to other antibiotic agents; Z88.8 Allergy status to other drugs, medicaments and biological substances; Z82.49 Family history of ischemic heart disease and other diseases of the circulatory system; Z87.442 Personal history of urinary calculi; Z98.890 Other specified postprocedural states
CPT/HCPCS: 72131

== ENCOUNTER → 2018-09-16 | Outpatient (CLI) | payer BC ==
[~2018-09-16] MED LIST changes: +GABA300S2 PO; +KETO10TA PO; +OXYC1TAB87 PO
--- NOTE | 2018-09-16 13:17 | Diagnostic Imaging Report ---
PROCEDURE: MRI lumbar spine. TECHNIQUE: Multiplanar, multisequence MRI of the lumbar spine was performed without contrast. INDICATION: Back pain. History of degenerative disc disease. COMPARISON: CT dated 06/28/2018. FINDINGS: For the purposes of this exam, last well-formed disc space is denoted at the L5-S1 level. Static alignment is maintained. There is no significant anterolisthesis or retrolisthesis. There is no evidence of jumped facets. Vertebral body heights are preserved. There is no evidence of acute fracture. Evaluation of marrow signal demonstrates Modic type I changes to adjacent endplates at L5-S1. Otherwise, marrow signal is unremarkable. There is also intervertebral disc height loss, greatest at L4-L5 and L5-S1. Posterior annular tear is also noted at L4-L5. Visualized portions of distal cord are unremarkable. Conus terminates at approximately the L1-L2 level. No abnormal intrathecal filling defects are seen. Pre-and paravertebral soft tissue structures are unremarkable. Axial images demonstrate the following: L1-L2 through L3-L4: There is no large disc bulge or focal protrusion. There is no significant spinal canal or neuroforaminal stenosis. L4-L5: There is broad-based posterior disc bulge with bilateral ligamentum flavum laxity and facet arthropathy. As a result, there is mild narrowing of spinal canal and bilateral neuroforamen. L5-S1: There is large right paracentral posterior disc protrusion superimposed on broad-based posterior disc osteophyte complex formation. As a result, there is severe narrowing of the right lateral recess with probable mass effect on the exiting right S1 nerve root. There is also moderate asymmetric stenosis of the spinal canal. Bilateral neuroforamen are mildly narrowed as well. IMPRESSION: 1. Degenerative changes of lower lumbar spine, greatest at L5-S1 where there is large right paracentral posterior disc protrusion resulting in mass effect on the exiting right S1 nerve root. 2. No acute fracture or dislocation. Dictated by: Dictated on workstation # [id number]
== END ==
LOC: RAD 11:53
PROVIDERS: ATTEND Nurse Practitioner Primary Care
DX: M47.817 Spondylosis without myelopathy or radiculopathy, lumbosacral region (principal); M51.37 Other intervertebral disc degeneration, lumbosacral region; M51.27 Other intervertebral disc displacement, lumbosacral region
CPT/HCPCS: 72148

== ENCOUNTER 2019-05-20 16:24 | Outpatient (RCR) | payer BC | END 2019-07-22 | disposition home or self-care (01) | PROVIDERS: ATTEND Family Medicine | DX: M54.5 Low back pain (principal); R20.2 Paresthesia of skin; Z98.890 Other specified postprocedural states ==

== ENCOUNTER 2021-10-19 21:42 | Emergency (ER) | payer BC ==
[~2021-10-19] VITALS: Ht 162.6 cm; Wt 76.7 kg
[~2021-10-19 21:42] MED LIST changes: +CYCL10TA25 PO; -CYCL10TA9 PO; -SULF1TAB35 PO; +SULF1TAB38 PO
[2021-10-19] MEDS ORDERED: RX-AMOXICILLIN 500 MG CAP #3 PPK PO STA (23:37)
[2021-10-19] MEDS ORDERED: AMOX875T2 PO (23:39)
--- NOTE | 2021-10-19 23:39 | ED EENT ---
History of Present Illness General Chief Complaint: Dental Problems/Pain Stated Complaint: PULLED STICHES OUT OF REMOVED TOOTH SPOT Nursing Triage Note: PT AMBULATORY TO ROOM. PT STATES SHE HAD A TOOTH PULLED AND STITCHES PUT IN ON FRIDAY OF THIS WEEK. TONIGHT SHE REPORTS MESSING WITH A STITCH THAT WAS BOTHERING HER AND SHE ACCIDENTALLY PULLED THE WHOLE THING OUT. PT HAS A VISIBLE HOLE TO AREA TOOTH WAS PULLED AND SHE REPORTS PAIN AND SWELLING Allergies and Home Medications Allergies Coded Allergies: azithromycin (Unverified Allergy, Unknown, 09/29/14) Uncoded Allergies: Z-PACK (Allergy, Severe, RASH, 01/26/15) ESTROGEN (Allergy, Mild, VOMITING, 01/26/15) Patient Home Medication List Alprazolam (Xanax) 1 Mg Tablet, 1 MG PO BID, (Reported) Entered as Reported by: ANDRAE FULLER on 06/30/14 0841 Alprazolam (Xanax) 0.25 Mg Tablet, 0.25 MG PO, (Reported) Entered as Reported by: MARSHA CHAKRABORTY on 09/29/14 0645 Cyclobenzaprine HCl (Cyclobenzaprine HCl) 10 Mg Tablet, 10 MG PO TID Prescribed by: SAL SNOW MD on 06/28/18 0851 Gabapentin (Gabapentin) 300 Mg/6 Ml Solution, Unknown Dose PO, (Reported) Entered as Reported by: FRANSISCO CHAKRABORTY on 06/28/18 0754 Ketorolac Tromethamine (Ketorolac Tromethamine) 10 Mg Tablet, 10 MG PO Q6H Prescribed by: SAL SNOW MD on 06/28/18 0851 Lamotrigine (Lamictal) 100 Mg Tablet, 100 MG PO DAILY, (Reported) Entered as Reported by: ANDRAE FULLER on 06/30/14 0841 Lamotrigine (Lamictal) 2 Mg Tb.chw.dsp, 2 MG PO, (Reported) Entered as Reported by: MARSHA CHAKRABORTY on 09/29/14 0645 Oxycodone HCl/Acetaminophen (Percocet 5-325 mg Tablet) 1 Each Tablet, 1 TAB PO Q4H Prescribed by: SAL SNOW MD on 06/28/18 0851 [Paroxetine] , 40 MG PO DAILY, (Reported) Entered as Reported by: ANDRAE FULLER on 06/30/14 0842 Past Lphocqi-Xrvixp-Ibpsnx Hx Patient Social History Tobacco Use?: No Use of E-Cig and/or Vaping dev: No Substance use?: Yes Substance type: Marijuana Substance frequency: Daily Alcohol Use?: Yes Alcohol Frequency: Once in a while Immunizations Up To Date Tetanus Booster (TDap): Unknown Influenza Vaccine Up-to-Date: No; Not Current Past Medical History Surgeries: Yes (d&c, kidney stone basket retrieval and a lithotripsy) Respiratory: No Cardiac: No Neurological: No Reproductive Disorders: No Genitourinary: Yes Kidney Stones Gastrointestinal: No Musculoskeletal: Yes (ankle malformation at ) Endocrine: No HEENT: No Cancer: No Psychosocial: Yes ADD/ADHD, Anxiety, Bipolar, Depression Integumentary: No Blood Disorders: No Family Medical History Heart Disease, Diabetes, Hypertension Physical Exam Vital Signs Vital Signs - First Documented 10/19/21 23:22 Temp 36.2 Pulse 67 Resp 18 B/P (MAP) 124/68 (86) Pulse Ox 98 Height, Weight, BMI Height: 5'4.00" Weight: 139lbs. oz. 63.143762ab; 29.00 BMI Method:Stated Progress/Results/Core Measures Results/Orders Vital Signs/I&O 10/19/21 23:22 Temp 36.2 Pulse 67 Resp 18 B/P (MAP) 124/68 (86) Pulse Ox 98 Blood Pressure Mean: 86 Departure Impression Primary Impression: POST DENTAL EXTRACTION Disposition: 01 HOME, SELF-CARE Condition: Stable Departure-Patient Inst. Decision time for Depature: 23:37 Referrals: TWILA MCNEIL MD (PCP) Primary Care Physician [facility] (Family) Primary Care Physician Patient Instructions: Tooth Extraction (DC) Add. Discharge Instructions: CONTINUE ALL POST DENTAL EXTRACTION INSTRUCTIONS CONTACT YOUR DENTIST TOMORROW OR FRIDAY FOR FURTHER CARE All discharge instructions reviewed with patient and/or family. Voiced understanding. Scripts Amoxicillin (Amoxicillin) 875 Mg Tablet 875 MG PO BID, #20 TAB Prov: ARNIE SOOD DO 10/19/21 ARNIE SOOD DO Oct 19, 2021 23:39
[2021-10-20 00:09] VITALS: BP 112/72
== END 2021-10-20 00:09 | disposition home or self-care (01) ==
LOC: EDUNIT# 21:42 → ER 21:46
DX: Z98.818 Other dental procedure status (principal)
CPT/HCPCS: 99282

== ENCOUNTER 2022-08-24 21:18 | Emergency (ER) | payer BC ==
[~2022-08-24 21:18] MED LIST changes: +AMOX875T2 PO; -GABA300S2 PO; +GABA300S3 PO
[2022-08-24] MEDS ORDERED: FLUORESCEIN (FLUOR-I-STRIPS) 1 MG STRP ONE (21:50)
[2022-08-24] MEDS ORDERED: TETRACAINE 0.5% OPHTH SOLN 4 ML BTL (SINGLE DOSE ONLY) ONE (21:50)
[2022-08-24] MEDS ORDERED: TETRACAINE 0.5% OPHTH SOLN 4 ML BTL (SINGLE DOSE ONLY) OU ONE (22:00)
[2022-08-24] MEDS ORDERED: FLUORESCEIN (FLUOR-I-STRIPS) 1 MG STRP OU ONE (22:00)
[2022-08-24] MEDS ORDERED: BSS 15 ML IR ONE (22:00)
--- NOTE | 2022-08-24 22:04 | ED EENT ---
History of Present Illness General Chief Complaint: Eye Problems Stated Complaint: INJ LEFT EYE Allergies and Home Medications Allergies Coded Allergies: azithromycin (Unverified Allergy, Unknown, 09/29/14) Uncoded Allergies: Z-PACK (Allergy, Severe, RASH, 01/26/15) ESTROGEN (Allergy, Mild, VOMITING, 01/26/15) Patient Home Medication List Alprazolam (Xanax) 1 Mg Tablet, 1 MG PO BID, (Reported) Entered as Reported by: ANDRAE FULLER on 06/30/14 0841 Alprazolam (Xanax) 0.25 Mg Tablet, 0.25 MG PO, (Reported) Entered as Reported by: MARSHA CHAKRABORTY on 09/29/14 0645 Amoxicillin (Amoxicillin) 875 Mg Tablet, 875 MG PO BID Prescribed by: ARNIE SOOD on 10/19/21 2339 Cyclobenzaprine HCl (Cyclobenzaprine HCl) 10 Mg Tablet, 10 MG PO TID Prescribed by: SAL SNOW MD on 06/28/18 0851 Gabapentin (Gabapentin) 300 Mg/6 Ml Solution, Unknown Dose PO, (Reported) Entered as Reported by: FRANSISCO CHAKRABORTY on 06/28/18 0754 Ketorolac Tromethamine (Ketorolac Tromethamine) 10 Mg Tablet, 10 MG PO Q6H Prescribed by: SAL SNOW MD on 06/28/18 0851 Lamotrigine (Lamictal) 100 Mg Tablet, 100 MG PO DAILY, (Reported) Entered as Reported by: ANDRAE FULLER on 06/30/14 0841 Lamotrigine (Lamictal) 2 Mg Tb.chw.dsp, 2 MG PO, (Reported) Entered as Reported by: MARSHA CHAKRABORTY on 09/29/14 0645 Oxycodone HCl/Acetaminophen (Percocet 5-325 mg Tablet) 1 Each Tablet, 1 TAB PO Q4H Prescribed by: SAL SNOW MD on 06/28/18 0851 [Paroxetine] , 40 MG PO DAILY, (Reported) Entered as Reported by: ANDRAE FULLER on 06/30/14 0842 Past Wobwxto-Gxthfo-Ufteuw Hx Immunizations Up To Date Tetanus Booster (TDap): Unknown Past Medical History Surgeries: Yes (d&c, kidney stone basket retrieval and a lithotripsy) Renal Respiratory: No Cardiac: No Neurological: No Reproductive Disorders: No Genitourinary: Yes Kidney Stones Gastrointestinal: No Musculoskeletal: Yes (ankle malformation at ) Endocrine: No HEENT: No Cancer: No Psychosocial: Yes ADD/ADHD, Anxiety, Bipolar, Depression Integumentary: No Blood Disorders: No Family Medical History Heart Disease, Diabetes, Hypertension Physical Exam Height, Weight, BMI Height: 5'4.00" Weight: 139lbs. oz. 63.563815hb; 29.00 BMI Method:Stated Progress/Results/Core Measures Results/Orders My Orders Orders - ARNIE SOOD DO Tetracaine 0.5% Ophth Lea Sdv (Tetracai (08/24/22 22:00) Fluorescein Strips ([id number]) (08/24/22 22:00) Balanced Salt Irrigation Soln (Bss Irrig (08/24/22 22:00) Fluorescein Strips ([id number]) (08/24/22 21:50) Tetracaine 0.5% Ophth Lea Sdv (Tetracai (08/24/22 21:50) Medications Given in ED Current Medications Medications Dose Ordered Sig/Ronnie Route Start Time Stop Time Status Last Admin Dose Admin Fluorescein Sodium 1 mg ONCE ONCE OU 08/24/22 22:00 08/24/22 22:01 08/24/22 21:53 1 MG Tetracaine HCl 4 ml ONCE ONCE OU 08/24/22 22:00 08/24/22 22:01 08/24/22 21:53 4 ML Departure Impression Primary Impression: LEFT CORNEAL ABRASION Disposition: HOME, SELF-CARE Condition: Stable Departure-Patient Inst. Decision time for Depature: 22:02 Referrals: JULI ANAYA APRN (PCP) Primary Care Physician [facility] (Family) Primary Care Physician SHABBIR CARSON OD Patient Instructions: Corneal Abrasion (DC) Add. Discharge Instructions: DO NOT RUB EYE USE EYE DROPS EVERY 4 HOURS YOU MAY TAKE TYLENOL AND MOTRIN NEEDED FOR PAIN NO DRIVING OR OPERATING ANY MACHINERY UNTIL YOU ARE CLEARED BY THE EYE DR FOLLOW UP WITH DR. VICTOR'S OFFICE OR WITH EYE DR OF CHOICE ON FRIDAY--CALL FIRST THING FRIDAY MORNING TO SCHEDULE APPOINTMENT RETURN TO ER IF YOU HAVE WORSENING SYMPTOMS All discharge instructions reviewed with patient and/or family. Voiced understanding. ARNIE SOOD DO Aug 24, 2022 22:04
[2022-08-24] MEDS ORDERED: RX-OFLOXACIN 0.3% OPHTH SOLN 5 ML ONE (22:07)
[2022-08-24 22:15] VITALS: BP 117/96
[2022-08-25] MEDS ORDERED: RX-OFLOXACIN 0.3% OPHTH SOLN 5 ML OP SCH
== END 2022-08-24 22:15 | disposition home or self-care (01) ==
LOC: EDUNIT# 21:18 → ER 21:21
DX: S05.02XA Injury of conjunctiva and corneal abrasion without foreign body, left eye, initial encounter (principal); Z28.311 Partially vaccinated for COVID-19; X58.XXXA Exposure to other specified factors, initial encounter
CPT/HCPCS: 99281